=== PATIENT | male | born 1955 | race Caucasian/White ===

== ENCOUNTER 2017-08-04 15:21 | Inpatient (IN) | payer MEDICARE, MEDICAID ==
[~2017-08-04] VITALS: Ht 182.9 cm; Wt 83.5 kg
[~2017-08-04 15:21] MED LIST: CITA20TA9 PO; DIPH50 PO; DIVA500T35 PO; RISP2 PO
[2017-08-04 15:33] LABS: GLUCOSE,POINT OF CARE 146 MG/DL (70-110)
[2017-08-04 15:44] LABS: BASOPHILS % (AUTO) 1.1 % (0.0-2.0); EOSINOPHILS % (AUTO) 0.5 % (1.0-6.0); HEMOGLOBIN 16.5 g/dL (13.5-17.5); LYMPHOCYTES # (AUTO) 4.1 K/uL (1.0-4.8); LYMPHOCYTES % (AUTO) 50.1 % (22.0-44.0); MEAN CORPUSCULAR HEMOGLOBIN 28.6 pg (26.0-34.0); MEAN CORPUSCULAR HGB CONC 33.8 G/dL (31.0-37.0); MEAN CORPUSCULAR VOLUME 85 fL (80-100); MONOCYTES # (AUTO) 0.5 K/uL (0.1-1.0); MONOCYTES % (AUTO) 6.5 % (2.0-9.0); NEUTROPHILS # (AUTO) 3.4 K/uL (1.8-7.7); NEUTROPHILS % (AUTO) 41.8 % (40.0-70.0); PLATELET COUNT (AUTO) 288 K/uL (150-450); RED BLOOD CELL COUNT(AUTO) 5.79 MIL/uL (4.50-5.90); RED CELL DISTRIBUTION WIDTH 20.3 % (11.5-14.5); WHITE BLOOD COUNT (AUTO) 8.2 K/uL (4.5-11.0)
[2017-08-04] MEDS ORDERED: LORazepam 1 MG TABLET PO ONE (15:45)
[2017-08-04 16:26] LABS: ANION GAP 14 mmol/L (8-16); CALCIUM, TOTAL 8.9 mg/dL (8.8-10.5); CARBON DIOXIDE 27 mmol/L (22-29); CHLORIDE 104 mmol/L (98-107); CREATININE 1.03 mg/dL (0.60-1.30); GLOMERULAR FILTR. RATE CALC > 60 mL/min (>60); POTASSIUM 3.9 mmol/L (3.5-5.1); SODIUM SERUM 145 mmol/L (136-145); UREA NITROGEN, BLOOD 8 mg/dL (7-18)
[2017-08-04 16:31] LABS: ALANINE AMINOTRANSFERASE 42 U/L (12-78); ALBUMIN 4.1 g/dL (3.4-5.0); ASPARTATE AMINOTRANSFERASE 49 U/L (15-37); BILIRUBIN,TOTAL 0.4 mg/dL (0.1-1.0); TOTAL PROTEIN, SERUM 8.7 g/dL (6.4-8.2)
[2017-08-04] MEDS ORDERED: HALOPERIDOL 5 MG TABLET PO PRN (17:00)
[2017-08-04] MEDS ORDERED: ZOLPIDEM TARTRATE 10 MG TABLET PO PRN (17:00)
[2017-08-04 17:02] LABS: ADD UA MICROSCOPIC NO; APPEARANCE,URINE CLEAR (CLEAR); GLUCOSE, URINE (UA) NEGATIVE (NEGATIVE); KETONES,URINE NEGATIVE (NEGATIVE); LEUKOCYTE ESTERASE ,URINE NEGATIVE (NEGATIVE); OCCULT BLOOD,URINE NEGATIVE (NEGATIVE); PH,URINE 6.5 (5.0-8.0); PROTEIN,URINE TRACE (NEGATIVE)
[2017-08-04 17:08] LABS: RBC MORPHOLOGY COMMENT ABNORMAL RBC MORPH
[2017-08-04] MEDS ORDERED: HALOPERIDOL LACTATE 5 MG/ML VIAL ONE (17:36)
[2017-08-04] MEDS ORDERED: DiphenhydrAMINE HCL 50 MG/ML VIAL ONE (17:36)
[2017-08-04] MEDS ORDERED: LORazepam 2 MG/ML VIAL ONE (17:36)
[2017-08-04] MEDS ORDERED: DiphenhydrAMINE HCL 50 MG/ML VIAL IM ONE (17:45)
[2017-08-04] MEDS ORDERED: HALOPERIDOL LACTATE 5 MG/ML VIAL IM ONE (17:45)
[2017-08-04] MEDS ORDERED: LORazepam 2 MG/ML VIAL IM ONE (17:45)
[2017-08-04] MEDS ORDERED: PNEUMOCOCCAL VACCINE POLYVALENT 0.5 ML VIAL [PPSV23] IM ONE (20:45)
[2017-08-04 20:53] VITALS: BP 135/89
[2017-08-04] MEDS ORDERED: NICOTINE 21 MG/24 HOUR PATCH TD SCH (21:00)
[2017-08-04 21:30] VITALS: BP 127/75
[2017-08-04 22:31] VITALS: BP 125/70
[2017-08-04 23:30] VITALS: BP 138/75
[2017-08-05] MEDS: LORazepam 2 MG TABLET PO PRN ×5 (00:17→20:48)
[2017-08-05 03:30] VITALS: BP 131/73
[2017-08-05 06:30] VITALS: BP 125/80
[2017-08-05 08:15] VITALS: BP 150/88
[2017-08-05] MEDS ORDERED: CloNIDine HCL 0.1 MG TABLET PO PRN (08:30)
[2017-08-05] MEDS ORDERED: BENZOCAINE/MENTHOL LOZENGE MM PRN (08:30)
[2017-08-05] MEDS ORDERED: ACETAMINOPHEN 325 MG TABLET PO PRN (08:30)
[2017-08-05] MEDS ORDERED: MAG HYDROX/AL HYDROX/SIMETH ES 30 ML SUSPENSION UDCUP PO PRN (08:30)
[2017-08-05] MEDS ORDERED: BACITRACIN 28.4 GM OINTMENT TP PRN (08:30)
[2017-08-05] MEDS ORDERED: IBUPROFEN 600 MG TABLET PO PRN (08:30)
[2017-08-05] MEDS ORDERED: ONDANSETRON HCL 4 MG TABLET PO PRN (08:30)
[2017-08-05] MEDS ORDERED: PETROLATUM,WHITE 71 GM JELLY TP PRN (08:30)
[2017-08-05] MEDS ORDERED: LOPERAMIDE HCL 2 MG CAPSULE PO PRN (08:30)
[2017-08-05] MEDS ORDERED: ALBUTEROL SULFATE HFA 90 MCG/PUFF 8 GM INHALER IH PRN (08:30)
[2017-08-05] MEDS ORDERED: MAGNESIUM HYDROXIDE SUSPENSION 30 ML UDCUP PO PRN (08:30)
[2017-08-05] MEDS: FLUoxetine HCL 20 MG CAPSULE PO SCH (08:32)
[2017-08-05] MEDS: NICOTINE 21 MG/24 HOUR PATCH TD SCH (08:42)
[2017-08-05 13:10] VITALS: BP 153/97
[2017-08-05 16:11] VITALS: BP 157/90
[2017-08-05 19:30] VITALS: BP 143/84
[2017-08-06 06:22] VITALS: BP 138/64
[2017-08-06 08:15] VITALS: BP 149/97
[2017-08-06] MEDS: FLUoxetine HCL 20 MG CAPSULE PO SCH (08:16)
[2017-08-06] MEDS: NICOTINE 21 MG/24 HOUR PATCH TD SCH (08:16)
[2017-08-06] MEDS: LORazepam 2 MG TABLET PO SCH ×4 (08:16→21:51)
[2017-08-06 09:37] LABS: CHOL/HDL RATIO 2.4 (4.2-7.3)
[2017-08-06] MEDS: LORazepam 2 MG TABLET PO PRN ×2 (10:26→19:06)
[2017-08-06 16:10] VITALS: BP 147/82
[2017-08-07 00:50] VITALS: BP 134/77
[2017-08-07] MEDS: LORazepam 2 MG TABLET PO PRN (00:59)
[2017-08-07] MEDS: FLUoxetine HCL 20 MG CAPSULE PO SCH (08:48)
[2017-08-07] MEDS: LORazepam 2 MG TABLET PO SCH (08:48)
[2017-08-07] MEDS: NICOTINE 21 MG/24 HOUR PATCH TD SCH (08:48)
[2017-08-07 08:49] VITALS: BP 126/80
[2017-08-07] MEDS ORDERED: FLUO10CA21 PO (09:40)
[2017-08-08] MEDS ORDERED: LORazepam 1 MG TABLET PO PRN (07:00)
[2017-08-08] MEDS ORDERED: LORazepam 1 MG TABLET PO SCH (09:00)
[2017-08-09] MEDS ORDERED: LORazepam 1 MG TABLET PO PRN (07:00)
== END 2017-08-07 11:40 | disposition home or self-care (01) | DRG 885 ==
LOC: EMS 15:23 → B2X 18:47
PROVIDERS: ADMIT Psychiatry & Neurology Psychiatry; ATTEND Psychiatry & Neurology Child & Adolescent Psychiatry
DX: F31.4 Bipolar disorder, current episode depressed, severe, without psychotic features (principal); R45.851 Suicidal ideations; Z78.1 Physical restraint status; F17.200 Nicotine dependence, unspecified, uncomplicated; M19.90 Unspecified osteoarthritis, unspecified site; F41.9 Anxiety disorder, unspecified; K21.9 Gastro-esophageal reflux disease without esophagitis; J44.9 Chronic obstructive pulmonary disease, unspecified; G47.00 Insomnia, unspecified; F10.129 Alcohol abuse with intoxication, unspecified; Z71.41 Alcohol abuse counseling and surveillance of alcoholic; Z79.899 Other long term (current) drug therapy; Z59.0 Homelessness; Z71.6 Tobacco abuse counseling; Z91.5 Personal history of self-harm; Y90.8 Blood alcohol level of 240 mg/100 ml or more
CPT/HCPCS: 82962; 96372; 99285; G0480; J1200; J1630; J2060

== ENCOUNTER 2020-12-07 14:14 | Emergency (ER) | payer MEDICARE, MEDICAID ==
[~2020-12-07] VITALS: Ht 180.3 cm; Wt 77.3 kg
[~2020-12-07 14:14] MED LIST changes: -CITA20TA9 PO; -DIPH50 PO; -DIVA500T35 PO; +FLUO10CA21 PO; -RISP2 PO
[2020-12-07] MEDS ORDERED: SODIUM CHLORIDE 0.9% 1,000 ML IV ONE ×2 (15:00→17:00)
[2020-12-07] MEDS ORDERED: LORazepam 2 MG/ML VIAL IVP ONE (15:00)
[2020-12-07] MEDS ORDERED: ACETAMINOPHEN 500 MG TABLET PO ONE (15:00)
[2020-12-07 16:13] LABS: BASOPHILS % (AUTO) 0.5 % (0.0-2.0); EOSINOPHILS % (AUTO) 0.7 % (1.0-6.0); HEMATOCRIT 44.4 % (41-53); HEMOGLOBIN 14.6 g/dL (13.5-17.5); LYMPHOCYTES % (AUTO) 39.2 % (22.0-44.0); MEAN CORPUSCULAR HEMOGLOBIN 27.5 pg (26.0-34.0); MEAN CORPUSCULAR HGB CONC 32.8 G/dL (31.0-37.0); MEAN CORPUSCULAR VOLUME 84 fL (80-100); MONOCYTES # (AUTO) 0.6 K/uL (0.1-1.0); MONOCYTES % (AUTO) 8.1 % (2.0-9.0); NEUTROPHILS % (AUTO) 51.5 % (40.0-70.0); PLATELET COUNT (AUTO) 143 K/uL (150-450); RED BLOOD CELL COUNT(AUTO) 5.31 MIL/uL (4.50-5.90); RED CELL DISTRIBUTION WIDTH 13.9 % (11.5-14.5)
[2020-12-07 16:15] VITALS: BP 155/93
[2020-12-07 16:37] LABS: COVID AG,FIA SOURCE NASOPHARYNGEAL
[2020-12-07 16:38] LABS: C-REACTIVE PROTEIN QUANT 0.11 mg/dL (0.00-0.30)
[2020-12-07 16:47] LABS: ALBUMIN 3.9 g/dL (3.4-5.0); BILIRUBIN,TOTAL 0.4 mg/dL (0.1-1.0); CALCIUM, TOTAL 8.5 mg/dL (8.8-10.5); CREATININE 1.27 mg/dL (0.60-1.30); POTASSIUM 3.8 mmol/L (3.5-5.1); TOTAL PROTEIN, SERUM 7.6 g/dL (6.4-8.2)
[2020-12-07] MEDS ORDERED: POTASSIUM CHLORIDE 20 MEQ ER TABLET PO ONE (17:00)
[2020-12-07] MEDS ORDERED: INSULIN REGULAR, HUMAN 100 UNITS/ML IVP ONE (17:00)
[2020-12-07 17:14] LABS: INFLUENZA TYPE A NEGATIVE FOR TYPE A (NEGATIVE); INFLUENZA TYPE B NEGATIVE FOR TYPE B (NEGATIVE)
== END 2020-12-07 17:30 | disposition left against medical advice (07) ==
LOC: EMS 14:22
DX: J18.9 Pneumonia, unspecified organism (principal); F41.9 Anxiety disorder, unspecified; F17.210 Nicotine dependence, cigarettes, uncomplicated; Z20.822 Contact with and (suspected) exposure to COVID-19; Z59.0 Homelessness
CPT/HCPCS: 36415; 71045; 80053; 82550; 82728; 83615; 83880; 84484; 85025; 85379; 86140; 87426; 87804; 93005; 96361; 96374; 96375; 99285; G0480; J1815; J2060; J7030; U0003

== ENCOUNTER 2020-12-15 20:57 | Inpatient (IN) | payer MEDICARE, MEDICAID ==
[~2020-12-15] VITALS: Ht 188 cm; Wt 91.3 kg
[2020-12-15] MEDS: INSULIN REGULAR, HUMAN 100 UNITS/ML IVP ONE ×2 (21:55)
[2020-12-15] MEDS: SODIUM CHLORIDE 0.9% 1,000 ML IV ONE ×2 (21:55)
[2020-12-15] MEDS ORDERED: DiphenhydrAMINE HCL 25 MG CAPSULE PO ONE (22:15)
[2020-12-15] MEDS ORDERED: HALOPERIDOL 5 MG TABLET PO ONE (22:15)
[2020-12-15] MEDS ORDERED: LORazepam 2 MG TABLET PO ONE (22:15)
[2020-12-15 22:28] LABS: COVID AG,FIA SOURCE NASOPHARYNGEAL
[2020-12-16 01:07] LABS: GLUCOSE,POINT OF CARE 241 MG/DL (70-110)
[2020-12-16 01:42] LABS: BASOPHILS % (AUTO) 0.3 % (0.0-2.0); EOSINOPHILS % (AUTO) 0.8 % (1.0-6.0); HEMATOCRIT 44.2 % (41-53); HEMOGLOBIN 14.3 g/dL (13.5-17.5); LYMPHOCYTES # (AUTO) 2.5 K/uL (1.0-4.8); LYMPHOCYTES % (AUTO) 40.7 % (22.0-44.0); MEAN CORPUSCULAR HEMOGLOBIN 27.8 pg (26.0-34.0); MEAN CORPUSCULAR HGB CONC 32.4 G/dL (31.0-37.0); MEAN CORPUSCULAR VOLUME 86 fL (80-100); MONOCYTES # (AUTO) 0.6 K/uL (0.1-1.0); MONOCYTES % (AUTO) 10.3 % (2.0-9.0); NEUTROPHILS # (AUTO) 2.9 K/uL (1.8-7.7); NEUTROPHILS % (AUTO) 47.9 % (40.0-70.0); PLATELET COUNT (AUTO) 195 K/uL (150-450); RED BLOOD CELL COUNT(AUTO) 5.14 MIL/uL (4.50-5.90); RED CELL DISTRIBUTION WIDTH 14.7 % (11.5-14.5)
[2020-12-16 01:50] LABS: AMPHET/METH SCREEN,URINE NEGATIVE (NEGATIVE); BARBITURATE SCREEN, URINE NEGATIVE (NEGATIVE); BENZODIAZEPINES SCREEN,URINE NEGATIVE (NEGATIVE); CANNABINOID SCREEN,URINE NEGATIVE (NEGATIVE); COCAINE SCREEN,URINE NEGATIVE (NEGATIVE); METHADONE SCREEN, URINE NEGATIVE (NEGATIVE); OPIATE SCREEN,URINE NEGATIVE (NEGATIVE)
[2020-12-16 01:52] LABS: PHENCYCLIDINE SCREEN,URINE NEGATIVE (NEGATIVE)
[2020-12-16 02:14] LABS: ALBUMIN 3.5 g/dL (3.4-5.0); BILIRUBIN,TOTAL 0.4 mg/dL (0.1-1.0); CALCIUM, TOTAL 8.8 mg/dL (8.8-10.5); CHOL/HDL RATIO 1.9 (4.2-7.3); CREATININE 1.29 mg/dL (0.60-1.30); TOTAL PROTEIN, SERUM 7.2 g/dL (6.4-8.2)
[2020-12-16] MEDS ORDERED: INSULIN REGULAR, HUMAN 100 UNITS/ML IVP ONE (02:45)
[2020-12-16 04:24] LABS: GLUCOSE,POINT OF CARE 92 MG/DL (70-110)
[2020-12-16 06:17] VITALS: BP 145/77
[2020-12-16] MEDS: LORazepam 2 MG TABLET PO PRN ×2 (06:26→21:44)
[2020-12-16 06:31] LABS: GLUCOMETER DEV NAME(LOC) BV2X.; GLUCOSE,POINT OF CARE 128 MG/DL (70-110)
[2020-12-16] MEDS ORDERED: GLUCAGON,HUMAN RECOMBINANT 1 MG VIAL IM PRN (07:00)
[2020-12-16] MEDS ORDERED: INSULIN LISPRO 100 UNITS/ML SQ PRN (07:00)
[2020-12-16] MEDS ORDERED: ONDANSETRON HCL 4 MG TABLET PO PRN (08:00)
[2020-12-16] MEDS ORDERED: MAGNESIUM HYDROXIDE SUSPENSION 30 ML UDCUP PO PRN (08:00)
[2020-12-16] MEDS ORDERED: PETROLATUM,WHITE 28 GM JELLY TP PRN (08:00)
[2020-12-16] MEDS ORDERED: GuaiFENesin/D-METHORPHAN [SUGAR-FREE] 200-20MG/10 ML SYRUP UDCUP PO PRN (08:00)
[2020-12-16] MEDS ORDERED: CloNIDine HCL 0.1 MG TABLET PO PRN (08:00)
[2020-12-16] MEDS ORDERED: LOPERAMIDE HCL 2 MG CAPSULE PO PRN (08:00)
[2020-12-16] MEDS ORDERED: DOCUSATE SODIUM 100 MG CAPSULE PO PRN (08:00)
[2020-12-16] MEDS ORDERED: ALBUTEROL SULFATE HFA 90 MCG/PUFF 8 GM INHALER IH PRN (08:00)
[2020-12-16] MEDS ORDERED: MAG HYDROX/AL HYDROX/SIMETH ES 30 ML SUSPENSION UDCUP PO PRN (08:00)
[2020-12-16] MEDS ORDERED: ACETAMINOPHEN 325 MG TABLET PO PRN (08:00)
[2020-12-16] MEDS ORDERED: NICOTINE 14 MG/24 HOUR PATCH TD PRN (08:00)
[2020-12-16 08:15] VITALS: BP 140/70
[2020-12-16] MEDS: NICOTINE 14 MG/24 HOUR PATCH TD SCH (09:03)
[2020-12-16] MEDS ORDERED: INFLUENZA VIRUS VACCINE QVS 2020-21 (6MO+)/PF 60 MCG/0.5 ML SYRINGE IM ONE (10:15)
[2020-12-16] MEDS: FLUoxetine HCL 20 MG CAPSULE PO SCH (11:30)
[2020-12-16 16:16] VITALS: BP 140/78
[2020-12-16] MEDS: IBUPROFEN 400 MG TABLET PO PRN (17:05)
[2020-12-17] VITALS (8 sets, daily range): BP systolic 123–162; BP diastolic 64–88
[2020-12-17] MEDS: LORazepam 2 MG TABLET PO PRN ×3 (06:37→22:06)
[2020-12-17] MEDS: NICOTINE 14 MG/24 HOUR PATCH TD SCH (08:52)
[2020-12-17] MEDS: FLUoxetine HCL 20 MG CAPSULE PO SCH (08:52)
[2020-12-17] MEDS: HALOPERIDOL 5 MG TABLET PO PRN ×2 (10:31→16:03)
[2020-12-17] MEDS ORDERED: MAG HYDROX/AL HYDROX/SIMETH ES 30 ML SUSPENSION UDCUP PO PRN (13:30)
[2020-12-17] MEDS ORDERED: CloNIDine HCL 0.1 MG TABLET PO PRN (13:30)
[2020-12-17] MEDS ORDERED: IBUPROFEN 600 MG TABLET PO PRN (13:30)
[2020-12-17] MEDS ORDERED: HydrOXYzine PAMOATE 50 MG CAPSULE PO PRN (13:30)
[2020-12-17] MEDS: CloNIDine HCL 0.1 MG TABLET PO SCH ×2 (16:04→21:57)
[2020-12-18] MEDS: HALOPERIDOL 5 MG TABLET PO PRN (02:40)
[2020-12-18 03:55] VITALS: BP 142/82
[2020-12-18 03:57] VITALS: BP 142/82
[2020-12-18] MEDS: LORazepam 2 MG TABLET PO PRN ×2 (04:14→09:05)
[2020-12-18] MEDS: CloNIDine HCL 0.1 MG TABLET PO SCH ×4 (06:14→20:40)
[2020-12-18 06:36] VITALS: BP 146/84
[2020-12-18 08:10] VITALS: BP 131/71
[2020-12-18] MEDS: FLUoxetine HCL 20 MG CAPSULE PO SCH (08:54)
[2020-12-18] MEDS: ChlordiazePOXIDE HCL 25 MG CAPSULE PO SCH ×4 (08:55→20:40)
[2020-12-18] MEDS: NICOTINE 14 MG/24 HOUR PATCH TD SCH (08:55)
[2020-12-19] MEDS ORDERED: DiphenhydrAMINE HCL 50 MG/ML VIAL IM ONE ×2 (00:05→00:30)
[2020-12-19] MEDS ORDERED: LORazepam 2 MG/ML VIAL IM ONE ×2 (00:05→00:30)
[2020-12-19] MEDS ORDERED: HALOPERIDOL LACTATE 5 MG/ML VIAL IM ONE ×2 (00:05→00:30)
[2020-12-19] MEDS ORDERED: DiphenhydrAMINE HCL 50 MG/ML VIAL ONE (00:13)
[2020-12-19] MEDS ORDERED: LORazepam 2 MG/ML VIAL ONE (00:13)
[2020-12-19] MEDS ORDERED: HALOPERIDOL LACTATE 5 MG/ML VIAL ONE (00:14)
[2020-12-19] MEDS: CloNIDine HCL 0.1 MG TABLET PO SCH ×4 (05:55→20:15)
[2020-12-19 08:16] VITALS: BP 144/73
[2020-12-19] MEDS: FLUoxetine HCL 20 MG CAPSULE PO SCH (08:33)
[2020-12-19] MEDS: NICOTINE 14 MG/24 HOUR PATCH TD SCH (08:33)
[2020-12-19] MEDS: ChlordiazePOXIDE HCL 25 MG CAPSULE PO SCH ×4 (08:34→20:15)
[2020-12-19] MEDS: LORazepam 2 MG TABLET PO PRN ×2 (08:34→12:41)
[2020-12-19 10:46] VITALS: BP 144/73
[2020-12-19 12:18] VITALS: BP 138/65
[2020-12-19 16:15] VITALS: BP 153/84
[2020-12-19 16:26] LABS: GLUCOMETER DEV NAME(LOC) BV2X.; GLUCOSE,POINT OF CARE 383 MG/DL (70-110)
[2020-12-19] MEDS ORDERED: INSULIN LISPRO 100 UNITS/ML SQ ONE (19:30)
[2020-12-19 19:41] LABS: GLUCOMETER DEV NAME(LOC) BV2X.; GLUCOSE,POINT OF CARE 411 MG/DL (70-110)
[2020-12-19 20:13] VITALS: BP 148/82
[2020-12-19] MEDS: ZOLPIDEM TARTRATE 10 MG TABLET PO PRN (20:45)
[2020-12-20 00:05] VITALS: BP 122/73
[2020-12-20] MEDS: ChlordiazePOXIDE HCL 25 MG CAPSULE PO PRN ×3 (00:09→05:36)
[2020-12-20 00:27] VITALS: BP 122/73
[2020-12-20] MEDS: HALOPERIDOL 5 MG TABLET PO PRN ×2 (01:27→08:35)
[2020-12-20 05:30] VITALS: BP 114/68
[2020-12-20] MEDS: CloNIDine HCL 0.1 MG TABLET PO SCH ×4 (05:52→21:32)
[2020-12-20 06:45] LABS: GLUCOMETER DEV NAME(LOC) BV2X.; GLUCOSE,POINT OF CARE 356 MG/DL (70-110)
[2020-12-20] MEDS ORDERED: ChlordiazePOXIDE HCL 10 MG CAPSULE PO PRN (07:00)
[2020-12-20 08:21] VITALS: BP 129/76
[2020-12-20] MEDS: FLUoxetine HCL 20 MG CAPSULE PO SCH (08:34)
[2020-12-20] MEDS: ChlordiazePOXIDE HCL 10 MG CAPSULE PO SCH ×4 (08:34→21:00)
[2020-12-20] MEDS: NICOTINE 14 MG/24 HOUR PATCH TD SCH (08:34)
[2020-12-20 12:37] VITALS: BP 139/76
[2020-12-20] MEDS ORDERED: INSULIN GLARGINE,HUM.REC.ANLOG 100 UNITS/ML SQ SCH (21:00)
[2020-12-20 21:43] VITALS: BP 129/76
[2020-12-20] MEDS: IBUPROFEN 400 MG TABLET PO PRN (21:48)
[2020-12-21 01:23] VITALS: BP 150/67
[2020-12-21 01:24] VITALS: BP 150/67
[2020-12-21] MEDS: ZOLPIDEM TARTRATE 10 MG TABLET PO PRN (01:31)
[2020-12-21] MEDS: CloNIDine HCL 0.1 MG TABLET PO SCH ×2 (06:24→12:00)
[2020-12-21] MEDS ORDERED: ChlordiazePOXIDE HCL 10 MG CAPSULE PO PRN (07:00)
[2020-12-21] MEDS: FLUoxetine HCL 20 MG CAPSULE PO SCH (08:47)
[2020-12-21] MEDS: NICOTINE 14 MG/24 HOUR PATCH TD SCH (08:47)
[2020-12-21] MEDS ORDERED: THIAMINE 100 MG TABLET PO SCH (09:00)
[2020-12-21 09:01] VITALS: BP 116/80
[2020-12-21] MEDS: HALOPERIDOL 5 MG TABLET PO PRN (09:46)
[2020-12-21 09:55] VITALS: BP 116/80
[2020-12-21 10:08] LABS: COVID AG,FIA SOURCE NASAL SWAB
[2020-12-21] MEDS ORDERED: GlipiZIDE 5 MG TABLET PO SCH (11:15)
[2020-12-21] MEDS ORDERED: MetFORMIN HCL 500 MG TABLET PO SCH (11:15)
[2020-12-21 11:19] LABS: GLUCOMETER DEV NAME(LOC) BV2X.; GLUCOSE,POINT OF CARE > 600 MG/DL (70-110)
[2020-12-21] MEDS ORDERED: INSULIN LISPRO 100 UNITS/ML SQ ONE (11:30)
[2020-12-21] MEDS ORDERED: CLON0.1T2 PO (20:12)
[2020-12-21] MEDS ORDERED: GLIP5 PO (20:12)
[2020-12-21] MEDS ORDERED: METF-960 PO (20:13)
[2020-12-21] MEDS ORDERED: INSLAN SQ (20:13)
== END 2020-12-21 14:40 | disposition admitted as inpatient to this hospital (09) | DRG 885 ==
LOC: EMS 20:57 → B2X 12-16 03:00
PROVIDERS: ADMIT Psychiatry & Neurology Psychiatry; ATTEND Psychiatry & Neurology Psychiatry
DX: F25.9 Schizoaffective disorder, unspecified (principal); E11.65 Type 2 diabetes mellitus with hyperglycemia; R45.851 Suicidal ideations; F41.9 Anxiety disorder, unspecified; M19.90 Unspecified osteoarthritis, unspecified site; Z20.822 Contact with and (suspected) exposure to COVID-19; Z87.891 Personal history of nicotine dependence; Z91.14 Patient's other noncompliance with medication regimen; Z59.0 Homelessness
CPT/HCPCS: 87426; 99285; G0480; J1200; J1630; J1815; J2060; J7030